=== PATIENT | female | born 1970 | race Two or more races ===

== ENCOUNTER 2018-05-15 03:15 | Emergency (ER) | payer OTHER ==
[~2018-05-15] VITALS: Ht 160 cm; Wt 50.8 kg
[~2018-05-15 03:15] MED LIST: ANTICONCEPTIVO; HYDROXYCHLOROQUINE; IBUPROFEN800 MG PO; LOSARTAN-HCTZ1 EAC1; TOPROL XL25 MG PO
[2018-05-15] MEDS ORDERED: ASA81 MG PO (03:23)
[2018-05-15] MEDS ORDERED: LOSARTAN POTASS25 MG PO (03:23)
== END 2018-05-15 09:19 | disposition home or self-care (01) ==
LOC: ER 03:15
DX: B34.9 Viral infection, unspecified (principal); F41.8 Other specified anxiety disorders

== ENCOUNTER 2021-02-15 07:51 | Day surgery (SDC) | payer OTHER ==
[~2021-02-15 07:51] MED LIST changes: +ASA81 MG PO; +LOSARTAN POTASS25 MG PO; +TOPROL XL25 M1 PO
[2021-02-15] MEDS ORDERED: IBU600 MG PO (12:52)
== END 2021-02-15 15:10 | disposition home or self-care (01) ==
LOC: CIR.AMB 07:51
PROVIDERS: ATTEND Obstetrics & Gynecology Gynecology
DX: N84.0 Polyp of corpus uteri (principal); Z20.822 Contact with and (suspected) exposure to COVID-19

== ENCOUNTER 2022-07-24 12:01 | Emergency (ER) | payer OTHER ==
[~2022-07-24] VITALS: Ht 160 cm; Wt 52.2 kg
[~2022-07-24 12:01] MED LIST changes: +IBU600 MG PO
== END 2022-07-24 16:53 | disposition home or self-care (01) ==
LOC: ER 12:01
DX: R42 Dizziness and giddiness (principal)